=== PATIENT | male | born 1960 | race Caucasian/White ===

== ENCOUNTER → 2017-08-05 | Outpatient (CLI) | payer OTHER ==
[~2017-08-05] MED LIST: REGADENOSON 0.4 MG/5 ML SYRINGE IV ONE
--- NOTE | 2017-08-05 13:34 | NM ---
EXAMINATION TYPE: NM stress lexiscan cardiolite DATE OF EXAM: 08/05/2017 COMPARISON: NONE HISTORY: Hyperlipidemia family history of coronary artery disease with tobacco abuse for 30 years. Mathew costello quit smoking 10 years ago. History of COPD. TECHNIQUE: After the intravenous administration of 10.13 mCi Tc 99m Sestamibi - Cardiolite resting S PECT images acquired 105 minutes post injection. The patient received 0.4mg Lexiscan, 25.1 mCi Tc 99m Sestamibi - Stress images obtained [address] injection FINDINGS: Review of stress and rest SPECT images demonstrates no reversible perfusion abnormality. Fixed defect in the distribution of the left circumflex coronary artery in the apical lateral segment is moderate and represents a small area of prior infarct. TID is within normal limits calculated at 1.19. Gated analysis shows normal wall motion with an estimated left ventricular ejection fraction of 58 %. IMPRESSION: 1. No scintigraphic evidence for reversible ischemia. 2. Small single segment fixed defect in the distribution of the left circumflex coronary artery from prior infarct. 3. Estimated left ventricular ejection fraction of 58%.
--- NOTE | 2017-08-05 22:52 | EST ---
EXERCISE STRESS AGE: 57 SEX: Male HT: 64" WT: 220 lbs PROTOCOL: Lexiscan Cardiolite STAGE: DURATION OF EXERCISE: HEART RATE REST: 65 BLOOD PRESSURE REST: 162/94 MAXIMUM HEART RATE ACHIEVED: 99 MAXIMUM BLOOD PRESSURE: 167/88 85% MPHR: 138 100% MPHR: 162 METS: INDICATIONS: Family history, physical. CLINICAL INFORMATION: Baseline EKG revealed a sinus mechanism with inferior nonspecific ST and T-wave abnormality. With Lexiscan administration, heart rate changed from 65 to 99 beats per minute. Blood pressure did not change appreciably; it was around 160/90. EKG remained inconclusive and patient did not have any angina. He had transient shortness of breath. By EKG criteria, this is an inconclusive Lexiscan stress test with minor resting EKG changes. The nuclear scan results, which are more pertinent, will be reported by the radiologist. MERCEDES / OSVALDO: [id number] /
== END | disposition home or self-care (01) ==
LOC: RADNMMAIN 08:23
PROVIDERS: ATTEND Family Medicine
DX: R93.1 Abnormal findings on diagnostic imaging of heart and coronary circulation (principal); R07.89 Other chest pain
CPT/HCPCS: 93017; 78452; A9500; J2785